=== PATIENT | male | born 1940 | race Caucasian/White ===

== ENCOUNTER 2019-12-14 13:11 | Outpatient (CLI) | payer MEDICARE, OTHER ==
[2019-12-14 13:17] LABS: HGB - HEMOGLOBIN 15.7 g/dL (14.0-18.0); MEAN CORPUSCULAR HEMOGLOBIN 33.5 pg (27.0-31.0); MEAN CORPUSCULAR HGB CONC 35.1 g/dL (32.0-36.0); MEAN CORPUSCULAR VOLUME 95.3 fL (80.0-94.0); MEAN PLATELET VOLUME 9.8 fL (7.4-11.4); RED BLOOD COUNT 4.69 10^6/uL (4.70-6.10); RED CELL DISTRIBUTION WIDTH 12.6 % (12.0-15.0)
[2019-12-14 13:31] LABS: ALBUMIN/GLOBULIN RATIO 1.3 (1.0-2.2); ALKALINE PHOSPHATASE 71 IU/L (42-121); ALT ALANINE AMINOTRANSFERASE 25 IU/L (10-60); AST ASPARTATE AMINOTRANSFERASE 23 IU/L (10-42); BILIRUBIN,TOTAL 1.3 mg/dL (0.2-1.0); BUN - BLOOD UREA NITROGEN 27 mg/dL (6-20); CALCIUM 8.9 mg/dL (8.5-10.3); CARBON DIOXIDE - CO2 23 mmol/L (21-32); CHLORIDE 106 mmol/L (101-111); CHOL/HDL RATIO 4.8 (<5.0); CHOLESTEROL 140 mg/dL; CREATININE 0.7 mg/dL (0.6-1.2); GLUCOSE 95 mg/dL (70-100); HDL CHOLESTEROL 29 mg/dL; LDL CHOLESTEROL,CALCULATED 97 mg/dL; LDL/HDL RATIO 3.3 (<3.6); SODIUM 138 mmol/L (135-145); TOTAL PROTEIN 7.2 g/dL (6.7-8.2); VLDL CHOLESTEROL 14 mg/dL
[2019-12-14 13:35] LABS: HB2 TOTAL 16.6 g/dL; HEMOGLOBIN A1C 0.62 g/dL; HEMOGLOBIN A1C % 5.6 % (4.6-6.2)
[2019-12-14 13:43] LABS: THYROID STIMULATING HORMONE 0.99 uIU/mL (0.34-5.60)
[2019-12-14 13:45] LABS: FREE T4 (FREE THYROXINE) 0.99 ng/dL (0.58-1.64)
--- NOTE | 2019-12-14 15:13 | CT Report ---
PROCEDURE: HEAD WO INDICATIONS: ATAXIA, IMBALANCE TECHNIQUE: Noncontrast 4.5 mm thick angled axial sections acquired from the foramen magnum to the vertex. For r adiation dose reduction, the following was used: automated exposure control, adjustment of mA and/or kV according to patient size. COMPARISON: None. FINDINGS: Image quality: Excellent. CSF spaces: Basal cisterns are patent. No extra-axial fluid collections. Ventricles are normal in size and shape. Brain: No midline shift. No intracranial masses or hemorrhage. Mccormack-white matter interface is norm al. Skull and face: Calvarium and visualized facial bones are intact, without suspicious lesions. Sinuses: Visualized sinuses and mastoids are clear. IMPRESSION: No significant abnormality is seen on this noncontrast head CT's explain the patient's s ymptoms. If it would be helpful for clinical management decision making, please consider a dedicated brain MRI (without and with contrast) for further evaluation (assuming that there is no contraindication). Reviewed by: Eliezer Reyna MD on 12/14/2019 2:12 PM [facility] Approved by: Eliezer Reyna MD on 12/14/2019 2:12 PM [facility] Station ID: [id number]
== END 2019-12-14 13:12 | disposition home or self-care (01) ==
LOC: DI 13:11
PROVIDERS: ATTEND Student in an Organized Health Care Education/Training Program
DX: R26.89 Other abnormalities of gait and mobility (principal); I48.91 Unspecified atrial fibrillation; I25.2 Old myocardial infarction; R73.03 Prediabetes; N40.1 Benign prostatic hyperplasia with lower urinary tract symptoms; R35.1 Nocturia; D69.6 Thrombocytopenia, unspecified
CPT/HCPCS: 36415; 70450; 80053; 80061; 82306; 82607; 83036; 83721; 84153; 84439; 84443; 85027; 93005

== ENCOUNTER 2021-01-11 16:35 | Outpatient (CLI) | payer MEDICARE, OTHER | END 2021-01-11 16:36 | disposition home or self-care (01) | LOC: COV 16:35 | PROVIDERS: ATTEND Family Medicine | DX: Z20.822 Contact with and (suspected) exposure to COVID-19 (principal) ==

== ENCOUNTER 2021-01-12 09:05 | Outpatient (CLI) | payer MEDICARE, OTHER | END 2021-01-12 09:06 | disposition home or self-care (01) | LOC: DI 09:05 | PROVIDERS: ATTEND Internal Medicine Cardiovascular Disease | DX: I48.91 Unspecified atrial fibrillation (principal); I51.7 Cardiomegaly; I87.8 Other specified disorders of veins | CPT/HCPCS: 93306 ==

== ENCOUNTER 2021-02-19 15:27 | Emergency (ER) | payer MEDICARE, OTHER ==
[2021-02-19 15:36] VITALS: BP 147/66
--- NOTE | 2021-02-19 15:59 | ED Physician Documentation ---
History of Present Illness - Stated complaint Stated Complaint: unable to urinate - Chief complaint Chief Complaint: General - History obtained from History obtained from: Patient - Additonal information Additional information: 80-year-old male with history of BPH on Flomax missed his Flomax for a few days and since last night has been unable to urinate. He has severe suprapubic pressure. Review of Systems Constitutional: reports: Reviewed and negative Eyes: reports: Reviewed and negative Ears: reports: Reviewed and negative Nose: reports: Reviewed and negative Throat: reports: Reviewed and negative PD PAST MEDICAL HISTORY - Allergies Allergies/Adverse Reactions: Allergies Allergy/AdvReac Type Severity Reaction Status Date / Time No Known Drug Allergies Allergy Verified 02/19/21 15:32 PD ED PE NORMAL - Vitals Vital signs reviewed: Yes - General General: Alert and oriented X 3, No acute distress - Abdomen Abdomen: Soft, Non tender - Back Back: No CVA TTP, No spinal TTP - Extremities Extremities: No edema, No calf tenderness / cord - Neuro Neuro: Alert and oriented X 3, Normal speech Results - Vitals Vitals: Vital Signs - 24 hr 02/19/21 15:33 Temperature 36.5 C Heart Rate 64 Respiratory 16 Rate Blood Pressure 147/66 H O2 Saturation 98 Oxygen O2 Source Room air Procedures - General procedure General procedure: I personally placed a regular 14-gauge Agarwal in standard fashion after iodine prep. There was some resistance at the prostate but not too much. Clear urine started draining and he was relieved. Departure - Departure Disposition: 01 Home, Self Care Clinical Impression: Urinary retention Condition: Good Record reviewed to determine appropriate education?: Yes Instructions: ED Catheter Care Agarwal, ED Retention Urinary Male Comments: Continue your Flomax which you have already filled at the pharmacy. Return or Friday for Agarwal removal and voiding trial.
== END 2021-02-19 16:10 | disposition home or self-care (01) ==
LOC: ED 15:27
DX: N40.1 Benign prostatic hyperplasia with lower urinary tract symptoms (principal); R33.8 Other retention of urine
CPT/HCPCS: 51702; 99281; 99284

== ENCOUNTER 2021-02-22 13:29 | Emergency (ER) | payer MEDICARE, OTHER ==
[2021-02-22 13:38] VITALS: BP 107/67
--- NOTE | 2021-02-22 15:20 | ED Physician Documentation ---
PD HPI MALE - Stated complaint Stated Complaint: CATH REMOVAL - Chief complaint Chief Complaint: General - History obtained from History obtained from: Patient - History of Present Illness Timing - onset: How many days ago (4) Timing - duration: Days (4) Timing - details: Abrupt onset, Now resolved Associated symptoms: Unable to urinate PD HPI MALE CONTRIB FACTORS: Other (BPH) Similar symptoms before: Diagnosis (urinary retention) Recently seen: Emergency Dept - Additional information Additional information: 80-year-old male seen in the emergency department 4 days ago, and a Agarwal catheter was placed for acute urinary retention, which was which was a result of the patient missing 2 to 3 days of Flomax. He has restarted on his Flomax he has had satisfactory flow through the catheter and has no discomfort he has not otherwise been ill. He would like to trial the catheter out today. Review of Systems Constitutional: denies: Fever Eyes: denies: Decreased vision Ears: denies: Ear pain Nose: denies: Congestion Throat: denies: Sore throat Respiratory: denies: Cough GI: denies: Vomiting, Diarrhea PD PAST MEDICAL HISTORY - Allergies Allergies/Adverse Reactions: Allergies Allergy/AdvReac Type Severity Reaction Status Date / Time No Known Drug Allergies Allergy Verified 02/19/21 15:32 - Social History Does the pt smoke?: No Smoking Status: Never smoker PD ED PE NORMAL - Vitals Vital signs reviewed: Yes (Normal) - General General: Alert and oriented X 3, No acute distress, Well developed/nourished - HEENT HEENT: Atraumatic, PERRL, EOMI - Respiratory Respiratory: No respiratory distress - Derm Derm: Normal color, Warm and dry, No rash - Extremities Extremities: No deformity, No edema - Neuro Neuro: carbonation tester 2-12 intact, No motor deficit, No sensory deficit, Normal speech Eye Opening: Spontaneous Motor: Obeys Commands Verbal: Oriented GCS Score: 15 - Psych Psych: Normal mood, Normal affect Results - Vitals Vitals: Vital Signs - 24 hr 02/22/21 13:35 Temperature 36.5 C Heart Rate 63 Respiratory 16 Rate Blood Pressure 107/67 O2 Saturation 97 Oxygen O2 Source Room air PD MEDICAL DECISION MAKING - ED course Complexity details: considered differential, d/w patient ED course: 80-year-old male with acute urinary retention which has been resolved with the use of a Agarwal catheter is ready to have his Agarwal catheter removed. Is been in place for about 4 days and he has restarted his Flomax. I am not able to find a documentation of how much urine was removed on the initial draining. The patient would like to try a voiding trial and we will discontinue his Agarwal catheter and have the patient return to the emergency department if he develops recurrence of retention. Departure - Departure Disposition: 01 Home, Self Care Clinical Impression: Urinary retention Condition: Stable Instructions: ED Retention Urinary Male Follow-Up: AISSATOU CASIANO MD [Primary Care Provider] - Comments: Dianne, we have removed your catheter today and we are expecting you to be able to urinate normally within a few hours. If your bladder fills and you are unable to void return to the emergency department for replacement of the catheter. Sometimes it is required to have the catheter in place for more than a week for the bladder to begin to work normally again.
== END 2021-02-22 15:36 | disposition home or self-care (01) ==
LOC: ED 13:29
DX: Z46.6 Encounter for fitting and adjustment of urinary device (principal); R33.9 Retention of urine, unspecified
CPT/HCPCS: 99282; 99283

== ENCOUNTER 2021-02-23 14:19 | Emergency (ER) | payer MEDICARE, OTHER ==
[2021-02-23 14:47] VITALS: BP 152/85
[2021-02-23] MEDS ORDERED: LIDOCAINE 2% URO-JET 5 ML SYRINGE UR STA (15:06)
[2021-02-23 15:37] LABS: BILIRUBIN,URINE NEGATIVE (NEGATIVE); GLUCOSE, URINE (UA) NEGATIVE (NEGATIVE); KETONES,URINE (UA) NEGATIVE (NEGATIVE); LEUKOCYTE ESTERASE, URINE NEGATIVE (NEGATIVE); NITRITE,URINE NEGATIVE (NEGATIVE); OCCULT BLOOD,URINE MODERATE (NEGATIVE); PROTEIN,URINE NEGATIVE (NEGATIVE); UROBILINOGEN,URINE 1 (NORMAL) E.U./dL (NORMAL)
[2021-02-23 15:38] LABS: CLARITY,URINE SL. CLOUDY (CLEAR)
--- NOTE | 2021-02-23 15:40 | ED Physician Documentation ---
PD HPI MALE - Stated complaint Stated Complaint: unable to urinate - Chief complaint Chief Complaint: Abd Pain - History obtained from History obtained from: Patient - History of Present Illness Timing - onset: Today Timing - duration: Hours Timing - details: Gradual onset, Still present Associated symptoms: Unable to urinate PD HPI MALE CONTRIB FACTORS: Other (recent urinary retention) Similar symptoms before: Diagnosis (urinary retension) Recently seen: Emergency Dept - Additional information Additional information: Previously well 80-year-old male presenting to the emergency department 4 days ago with acute urinary retention and had a catheter placed at that time. He had no problems with the catheter and he came back yesterday for removal of the catheter after 3 days. We were able to remove the catheter and he was able to successfully void several times before he went to bed and then he noticed overnight that he was having smaller amounts out and then this morning he was unable to urinate again. He is not otherwise ill. Review of Systems Constitutional: denies: Fever Eyes: denies: Decreased vision Ears: denies: Ear pain Nose: denies: Congestion Throat: denies: Sore throat Respiratory: denies: Cough GI: denies: Vomiting : reports: Unable to Void Skin: denies: Rash Musculoskeletal: denies: Neck pain, Back pain, Extremity pain Neurologic: denies: Generalized weakness, Focal weakness, Numbness PD PAST MEDICAL HISTORY - Present Medications Home Medications: Ambulatory Orders Medication Instructions Recorded Confirmed Aspirin EC [Ecotrin] 1 tab DAILY 02/23/21 02/23/21 Sulfamethox/Trimeth 800/160 1 tab BID 02/23/21 02/23/21 [Bactrim Ds] Tamsulosin [Flomax] 1 tab DAILY 02/23/21 02/23/21 - Allergies Allergies/Adverse Reactions: Allergies Allergy/AdvReac Type Severity Reaction Status Date / Time No Known Drug Allergies Allergy Verified 02/23/21 14:47 - Social History Does the pt smoke?: No Smoking Status: Never smoker PD ED PE NORMAL - Vitals Vital signs reviewed: Yes (hypertensive) - General General: Alert and oriented X 3, No acute distress, Well developed/nourished - HEENT HEENT: Atraumatic, PERRL, EOMI - Respiratory Respiratory: No respiratory distress - Abdomen Abdomen: Soft, Other (suprapubic tenderness/fullness) - Back Back: No CVA TTP, No spinal TTP - Derm Derm: Normal color, Warm and dry, No rash - Extremities Extremities: No deformity, No edema - Neuro Neuro: Alert and oriented X 3, postal delivery officer 2-12 intact, No motor deficit, No sensory deficit, Normal speech Eye Opening: Spontaneous Motor: Obeys Commands Verbal: Oriented GCS Score: 15 - Psych Psych: Normal mood, Normal affect Results - Vitals Vitals: Vital Signs - 24 hr 02/23/21 14:44 Temperature 36.6 C Heart Rate 88 Respiratory 20 Rate Blood Pressure 152/85 H O2 Saturation 100 Oxygen O2 Source Room air - Labs Labs: Laboratory Tests 02/23/21 15:22 Urine Color DARK YELLOW Urine Clarity SL. CLOUDY Urine pH 6.0 Ur Specific [place] 1.025 Urine Protein NEGATIVE Urine Glucose (UA) NEGATIVE Urine Ketones NEGATIVE Urine Occult Blood MODERATE H Urine Nitrite NEGATIVE Urine Bilirubin NEGATIVE Urine Urobilinogen 1 (NORMAL) Ur Leukocyte Esterase NEGATIVE Urine RBC 6-10 H Urine WBC 0-3 Ur Squamous Epith Cells FEW Squamous Amorphous Sediment Not Reportable Urine Bacteria Few Urine Mucus Moderate Strands Ur Microscopic Review INDICATED Urine Culture Comments NOT INDICATED PD MEDICAL DECISION MAKING - ED course Complexity details: reviewed old records, reviewed results, re-evaluated patient, considered differential, d/w patient ED course: 80 y/o male with acute urinary retention has failed outpatient voiding trial and will now need the catheter in place for up to 2 weeks. Departure - Departure Disposition: 01 Home, Self Care Clinical Impression: Urinary retention Condition: Stable Instructions: ED Catheter Care Any, SADE Retention Urinary Male Follow-Up: AISSATOU CASIANO MD [Primary Care Provider] - Abbey Tinajero MD [Physician No Access] - Comments: Dianne, today you have failed your voiding trial and you will need to keep this catheter in place for 10 to 14 days. My recommendation is to call your primary care doctor and get an appointment to see a urologist for the follow-up visit to have the catheter removed.
[2021-02-23 15:49] LABS: BACTERIA,URINE Few /HPF (None Seen); MUCUS,URINE Moderate Strands; SQUAMOUS EPITHELIAL CELL,UR FEW Squamous (<= Few); WBC,URINE 0-3 /HPF (0-3)
== END 2021-02-23 16:40 | disposition home or self-care (01) ==
LOC: ED 14:19
DX: R33.9 Retention of urine, unspecified (principal)
CPT/HCPCS: 81001; 81003; 87086; 99283

== ENCOUNTER 2021-02-24 12:36 | Emergency (ER) | payer MEDICARE, OTHER ==
[2021-02-24 12:44] VITALS: BP 145/77
--- NOTE | 2021-02-24 12:53 | ED Physician Documentation ---
History of Present Illness - Stated complaint Stated Complaint: CATH IN WRONG - Chief complaint Chief Complaint: General - History obtained from History obtained from: Patient - Additonal information Additional information: He has an indwelling catheter placed recently because of acute urinary retention. He has skin irritation at the distal end of the leg bag where the valve is contacting the skin and he requests this be addressed. Review of Systems Constitutional: reports: Reviewed and negative Eyes: reports: Reviewed and negative Ears: reports: Reviewed and negative Nose: reports: Reviewed and negative Throat: reports: Reviewed and negative Cardiac: reports: Reviewed and negative PD PAST MEDICAL HISTORY - Past Medical History Respiratory: Sleep apnea - Past Surgical History Past Surgical History: Yes - Present Medications Home Medications: Ambulatory Orders Medication Instructions Recorded Confirmed Aspirin EC [Ecotrin] 1 tab DAILY 02/23/21 02/23/21 Sulfamethox/Trimeth 800/160 1 tab BID 02/23/21 02/23/21 [Bactrim Ds] Tamsulosin [Flomax] 1 tab DAILY 02/23/21 02/23/21 - Allergies Allergies/Adverse Reactions: Allergies Allergy/AdvReac Type Severity Reaction Status Date / Time No Known Drug Allergies Allergy Verified 02/24/21 12:44 - Social History Does the pt smoke?: No Smoking Status: Never smoker Does the pt have substance abuse?: No PD ED PE NORMAL - Vitals Vital signs reviewed: Yes - General General: Alert and oriented X 3, No acute distress - Derm Derm: Other (Agarwal catheter with leg bag in place, urine in the bag, the valve is tight against the skin near the medial right knee with mild redness there.) - Neuro Neuro: Alert and oriented X 3, Normal speech Results - Vitals Vitals: Vital Signs - 24 hr 02/24/21 12:40 Temperature 36.6 C Heart Rate 110 H Respiratory 18 Rate Blood Pressure 145/77 H O2 Saturation 98 Oxygen O2 Source Room air PD MEDICAL DECISION MAKING - ED course ED course: The leg bag was removed, replaced more loosely and he was advised to wear loose pants because he had when wearing tight jeans. Departure - Departure Disposition: 01 Home, Self Care Clinical Impression: Indwelling Agarwal catheter present Agarwal catheter problem Qualifiers: Encounter type: initial encounter Qualified Code(s): T83.9XXA - Unspecified complication of genitourinary prosthetic device, implant and graft, initial encounter Condition: Good Record reviewed to determine appropriate education?: Yes Instructions: ED Catheter Care Agarwal Comments: Wear looser pants and drink more fluids as the urine in the bag was getting a little dark. You can use the leg bag during the day and the overnight bag at night. Follow-up with urology in a week and a half or so for reevaluation. Return if worse.
== END 2021-02-24 13:10 | disposition home or self-care (01) ==
LOC: ED 12:36
DX: T83.098A Other mechanical complication of other urinary catheter, initial encounter (principal); Y84.6 Urinary catheterization as the cause of abnormal reaction of the patient, or of later complication, without mention of misadventure at the time of the procedure; Y73.8 Miscellaneous gastroenterology and urology devices associated with adverse incidents, not elsewhere classified; Z79.82 Long term (current) use of aspirin
CPT/HCPCS: 99281

== ENCOUNTER 2021-03-11 12:37 | Emergency (ER) | payer MEDICARE, OTHER ==
--- NOTE | 2021-03-11 13:20 | ED Physician Documentation ---
History of Present Illness - Stated complaint Stated Complaint: NEEDS CATH REMOVED - Chief complaint Chief Complaint: General - History obtained from History obtained from: Patient - History of Present Illness Timing: Today Pain level max: 0 Pain level now: 0 - Additonal information Additional information: states here for thompson catheter removal. unable to see urology until 05/01/21. no complaints. Review of Systems Constitutional: denies: Fever Respiratory: denies: Cough GI: denies: Abdominal Pain, Vomiting PD PAST MEDICAL HISTORY - Past Medical History Past Medical History: Yes Respiratory: Sleep apnea - Past Surgical History Past Surgical History: Yes - Present Medications Home Medications: Ambulatory Orders Medication Instructions Recorded Confirmed Aspirin EC [Ecotrin] 1 tab DAILY 02/23/21 03/11/21 Tamsulosin [Flomax] 1 tab DAILY 02/23/21 03/11/21 - Allergies Allergies/Adverse Reactions: Allergies Allergy/AdvReac Type Severity Reaction Status Date / Time No Known Drug Allergies Allergy Verified 03/11/21 12:53 - Social History Does the pt smoke?: No Smoking Status: Never smoker Does the pt have substance abuse?: No PD ED PE NORMAL - Vitals Vital signs reviewed: Yes - General General: Alert and oriented X 3, No acute distress - HEENT HEENT: Moist mucous membranes - Neck Neck: Supple, no meningeal sign - Cardiac Cardiac: RRR - Respiratory Respiratory: No respiratory distress, Clear bilaterally - Abdomen Abdomen: Soft, Non tender, Non distended - Derm Derm: Warm and dry - Extremities Extremities: No edema - Neuro Neuro: Alert and oriented X 3 Results - Vitals Vitals: Vital Signs - 24 hr 03/11/21 03/11/21 12:48 14:17 Temperature 36.5 C 36.4 C L Heart Rate 95 67 Respiratory 17 16 Rate Blood Pressure 146/83 H 148/59 H O2 Saturation 98 100 Oxygen O2 Source Room air PD MEDICAL DECISION MAKING - ED course Complexity details: reviewed old records, considered differential, d/w patient, d/w family ED course: Thompson catheter removed. No complications. Patient and family do not want to stay for a voiding trial. They will return tonight if he is unable to void. This document was made in part using voice recognition software. While efforts are made to proofread this document, sound alike and grammatical errors may occur. Patient and family did decide to stay for a voiding trial and he did void in the emergency department. Departure - Departure Disposition: 01 Home, Self Care Clinical Impression: Encounter for Thompson catheter removal Condition: Good Instructions: Thompson Catheter Remove Follow-Up: your,doctor as needed [Other] Comments: Please follow up with your doctor as needed for further care. If he is unable to urinate by tonight, he should return for catheter reinsertion Discharge Date/Time: 03/11/21 14:18
[2021-03-11 14:18] VITALS: BP 148/59
== END 2021-03-11 14:18 | disposition home or self-care (01) ==
LOC: ED 12:37
DX: Z46.6 Encounter for fitting and adjustment of urinary device (principal)
CPT/HCPCS: 99281

== ENCOUNTER 2021-03-13 10:51 | Emergency (ER) | payer MEDICARE, OTHER ==
--- NOTE | 2021-03-13 11:41 | ED Physician Documentation ---
PD HPI ABD PAIN - Stated complaint Stated Complaint: MALE - Chief complaint Chief Complaint: Abd Pain - History obtained from History obtained from: Patient, Family - Additional information Additional information: 80-year-old gentleman has had recent troubles with urinary retention. Had 2 catheters in the last month, the second was 2 weeks and its been out for about 8 days and again developed urinary retention since yesterday. Has an appointment with urology but not until May 01. Review of Systems Constitutional: denies: Fever, Chills GI: denies: Abdominal Pain, Nausea, Vomiting, Diarrhea : denies: Dysuria PD PAST MEDICAL HISTORY - Past Medical History Past Medical History: Yes Cardiovascular: Congestive heart failure Respiratory: Sleep apnea Neuro: None Endocrine/Autoimmune: None GI: None : Benign prostate hypertrophy HEENT: None Psych: None Musculoskeletal: None Derm: None - Past Surgical History Past Surgical History: Yes - Present Medications Home Medications: Ambulatory Orders Medication Instructions Recorded Confirmed Aspirin EC [Ecotrin] 1 tab DAILY 02/23/21 03/11/21 Tamsulosin [Flomax] 1 tab DAILY 02/23/21 03/11/21 - Allergies Allergies/Adverse Reactions: Allergies Allergy/AdvReac Type Severity Reaction Status Date / Time No Known Drug Allergies Allergy Verified 03/13/21 11:06 - Social History Does the pt smoke?: No Smoking Status: Never smoker Does the pt have substance abuse?: No - POLST Patient has POLST: Yes PD ED PE NORMAL - Vitals Vital signs reviewed: Yes - General General: Alert and oriented X 3, No acute distress - Abdomen Abdomen: Non tender, Non distended - Neuro Neuro: Alert and oriented X 3, Normal speech Results - Vitals Vitals: Vital Signs - 24 hr 03/13/21 11:01 Temperature 36.3 C L Heart Rate 72 Respiratory 18 Rate Blood Pressure 154/79 H O2 Saturation 98 Oxygen O2 Source Room air Departure - Departure Disposition: Home, Self Care Clinical Impression: Urinary retention Condition: Good Record reviewed to determine appropriate education?: Yes Instructions: ED Catheter Care Agarwal Comments: At this point would leave the catheter in until you follow-up with urology. Call them and let them know that you now have an indwelling Agarwal catheter. Return if worsening.
[2021-03-13 12:37] VITALS: BP 132/60
== END 2021-03-13 12:45 | disposition home or self-care (01) ==
LOC: ED 10:51
DX: R33.9 Retention of urine, unspecified (principal)
CPT/HCPCS: 51702; 99282; 99283

== ENCOUNTER 2021-03-16 08:59 | Emergency (ER) | payer MEDICARE, OTHER ==
[2021-03-16 09:05] VITALS: BP 141/59
--- NOTE | 2021-03-16 09:29 | ED Physician Documentation ---
History of Present Illness - Stated complaint Stated Complaint: CATH LEAKING - Chief complaint Chief Complaint: General - History obtained from History obtained from: Patient - History of Present Illness Timing: How many days ago (3) Pain level max: 0 Pain level now: 0 - Additonal information Additional information: Patient is a 80-year-old male who had a catheter replaced about 3 days ago. He states that intermittently he gets leaking from around the catheter at the tip of his penis. Otherwise no complaints. Nothing makes it better or worse. No pain. Review of Systems Constitutional: denies: Fever, Chills Respiratory: denies: Cough GI: denies: Vomiting, Diarrhea Skin: denies: Rash PD PAST MEDICAL HISTORY - Past Medical History Cardiovascular: Congestive heart failure Respiratory: Sleep apnea Neuro: None Endocrine/Autoimmune: None GI: None : Benign prostate hypertrophy, Retention HEENT: None Psych: None Musculoskeletal: None Derm: None - Past Surgical History Past Surgical History: Yes - Present Medications Home Medications: Ambulatory Orders Medication Instructions Recorded Confirmed Aspirin EC [Ecotrin] 1 tab DAILY 02/23/21 03/11/21 Tamsulosin [Flomax] 1 tab DAILY 02/23/21 03/11/21 - Allergies Allergies/Adverse Reactions: Allergies Allergy/AdvReac Type Severity Reaction Status Date / Time No Known Drug Allergies Allergy Verified 03/16/21 09:05 - Social History Does the pt smoke?: No Smoking Status: Never smoker Does the pt have substance abuse?: No - POLST Patient has POLST: Yes PD ED PE NORMAL - Vitals Vital signs reviewed: Yes - General General: Alert and oriented X 3, No acute distress - HEENT HEENT: Moist mucous membranes - Cardiac Cardiac: RRR - Respiratory Respiratory: No respiratory distress, Clear bilaterally - Abdomen Abdomen: Soft, Non tender, Non distended - Male Male : Other (normal external exam) - Derm Derm: Warm and dry - Neuro Neuro: Alert and oriented X 3 - Psych Psych: Normal mood, Normal affect Results - Vitals Vitals: Vital Signs - 24 hr 03/16/21 09:03 Temperature 36.1 C L Heart Rate 60 Respiratory 16 Rate Blood Pressure 141/59 H O2 Saturation 99 Oxygen O2 Source Room air PD MEDICAL DECISION MAKING - ED course Complexity details: considered differential, d/w patient ED course: Catheter replaced. Tolerated well. Increased the size of the catheter. We will have him follow-up with urology as scheduled. Patient counseled regarding signs and symptoms for which I believe and urgent re-evaluation would be necessary. Patient with good understanding of and agreement to plan and is comfortable going home at this time This document was made in part using voice recognition software. While efforts are made to proofread this document, sound alike and grammatical errors may occur. Departure - Departure Disposition: 01 Home, Self Care Clinical Impression: Indwelling Agarwal catheter present Condition: Good Instructions: ED Catheter Care Agarwal Follow-Up: your,doctor in 1 week [Other] Comments: Please make sure to follow-up with your doctor and urology for further care. Return if you worsen.
[2021-03-16 10:50] LABS: BILIRUBIN,URINE NEGATIVE (NEGATIVE); GLUCOSE, URINE (UA) NEGATIVE (NEGATIVE); KETONES,URINE (UA) 15 mg/dL (NEGATIVE); LEUKOCYTE ESTERASE, URINE SMALL (NEGATIVE); NITRITE,URINE NEGATIVE (NEGATIVE); OCCULT BLOOD,URINE LARGE (NEGATIVE); PH,URINE 6.5 PH (5.0-7.5); PROTEIN,URINE TRACE mg/dL (NEGATIVE); UROBILINOGEN,URINE 1 (NORMAL) E.U./dL (NORMAL)
[2021-03-16 10:53] LABS: CLARITY,URINE HAZY (CLEAR)
[2021-03-16 11:00] LABS: BACTERIA,URINE Few /HPF (None Seen); MUCUS,URINE Moderate Strands; SQUAMOUS EPITHELIAL CELL,UR NONE SEEN (<= Few)
== END 2021-03-16 11:10 | disposition home or self-care (01) ==
LOC: ED 08:59
DX: T83.031A Leakage of indwelling urethral catheter, initial encounter (principal); Y84.6 Urinary catheterization as the cause of abnormal reaction of the patient, or of later complication, without mention of misadventure at the time of the procedure
CPT/HCPCS: 51702; 81001; 81003; 87077; 87086; 87181; 99282; 99283

== ENCOUNTER 2021-05-18 18:54 | Emergency (ER) | payer MEDICARE, OTHER ==
[2021-05-18] MEDS ORDERED: LIDOCAINE 2% URO-JET 5 ML SYRINGE UR STA (19:22)
--- NOTE | 2021-05-18 19:25 | ED Physician Documentation ---
History of Present Illness - Stated complaint Stated Complaint: MALE - Chief complaint Chief Complaint: Abd Pain - Additonal information Additional information: 80-year-old male who has a chronic indwelling Agarwal [facility] abdominal distention and failure of the catheter to drain adequately over the last 12 to 24 hours. He is being followed by urologist and has a biopsy scheduled May 31 for further evaluation of his prostate. He does take Flomax daily. He last saw urology and had his Agarwal changed about 2 weeks ago at [facility]. Review of Systems Constitutional: denies: Fever, Chills Nose: reports: Reviewed and negative Throat: reports: Reviewed and negative Cardiac: reports: Reviewed and negative Respiratory: reports: Reviewed and negative GI: reports: Abdominal Pain. denies: Nausea, Vomiting : reports: Dysuria, Unable to Void, Other (Chronic indwelling Agarwal catheter) Skin: reports: Reviewed and negative Musculoskeletal: reports: Reviewed and negative PD PAST MEDICAL HISTORY - Past Medical History Cardiovascular: Congestive heart failure Respiratory: Sleep apnea Neuro: None Endocrine/Autoimmune: None GI: None : Benign prostate hypertrophy, Retention HEENT: None Psych: None Musculoskeletal: None Derm: None - Past Surgical History Past Surgical History: Yes - Present Medications Home Medications: Ambulatory Orders Medication Instructions Recorded Confirmed Aspirin EC [Ecotrin] 1 tab DAILY 02/23/21 03/11/21 Tamsulosin [Flomax] 1 tab DAILY 02/23/21 03/11/21 Cefpodoxime Proxetil [Vantin] 100 mg PO Q12H #14 tablet 05/18/21 - Allergies Allergies/Adverse Reactions: Allergies Allergy/AdvReac Type Severity Reaction Status Date / Time No Known Drug Allergies Allergy Verified 05/18/21 19:06 - Social History Does the pt smoke?: No Smoking Status: Never smoker Does the pt have substance abuse?: No - POLST Patient has POLST: Yes PD ED PE EXPANDED - General General: Alert, No acute distress - Cardiac Cardiac: Regular Rate, Radial strong equal, Pedal strong equal, Cap refill < 2 sec - Respiratory Respiratory: Clear to ausultation archie. No: Distress, Labored - Abdomen Abdomen: Normal Bowel sounds, Tender to palpation (Tenderness in suprapubic region with a palpable bladder) - Male Male : Other (External Agarwal catheter connected to a leg bag is no longer draining. Tubing is quite discolored and brown. Visible urine in the leg bag does appear yellow however.) - Derm Derm: Normal color, Warm and dry Results - Vitals Vitals: Vital Signs - 24 hr 05/18/21 18:58 Temperature 36.5 C Heart Rate 60 Respiratory 16 Rate Blood Pressure 163/60 H O2 Saturation 100 Oxygen O2 Source Room air - Labs Labs: Laboratory Tests 05/18/21 19:51 Urine Color DARK YELLOW Urine Clarity HAZY Urine pH 5.5 Ur Specific Cecil 1.025 Urine Protein 30 H Urine Glucose (UA) NEGATIVE Urine Ketones TRACE Urine Occult Blood LARGE H Urine Nitrite POSITIVE H Urine Bilirubin NEGATIVE Urine Urobilinogen 1 (NORMAL) Ur Leukocyte Esterase TRACE H Urine RBC TNTC H Urine WBC 6-10 H Ur Squamous Epith Cells NONE SEEN Urine Bacteria Moderate H Ur Microscopic Review INDICATED Urine Culture Comments INDICATED PD MEDICAL DECISION MAKING - ED course Complexity details: reviewed results, re-evaluated patient, considered differential, d/w patient, d/w family ED course: This is a well-appearing 80-year-old male that presents to the emergency department for evaluation of lower abdominal pain and urinary obstruction. Reports that over the last 1224 hrs. the Agarwal has stopped draining well and he has had clots in it. He is being followed by urologist through [facility] and is scheduled for a biopsy upcoming. He has not had any fevers. On initial exam the Agarwal was indeed not draining and had a very Ally urine with blood clots. The Agarwal catheter was exchanged with a 16 Turkmen catheter. He did have some bleeding noted on the newly draining urine as well as blood passing from the meatus. I spent an extensive amount of time at the bedside with the discussing that often new Agarwal catheters that are exchanged can bleed. She was quite concerned that the clots would cause obstruction tonight. We did irrigate the Agarwal at the bedside until it was pink-colored and his leg bag was adjusted to the 's preference. His urine however is consistent with acute infection. He was given a gram of ceftriaxone and will be discharged with a prescription for Cefpodoxime. He is to continue close follow-up with urology department at [facility]. Emergent return precautions were discussed for concerns of failure of the catheter to drain. Departure - Departure Disposition: 01 Home, Self Care Clinical Impression: Acute cystitis with hematuria Obstructed Agarwal catheter Qualifiers: Encounter type: initial encounter Qualified Code(s): T83.091A - Other mechanical complication of indwelling urethral catheter, initial encounter Condition: Stable Record reviewed to determine appropriate education?: Yes Prescriptions: Cefpodoxime Proxetil [Vantin] 100 mg PO Q12H #14 tablet Comments: Dianne you were seen in the emergency department today for failure of your Agarwal catheter to drain. It was changed here in the emergency department and there was blood in the urine. Urine does show infection. You were given your first dose of antibiotic in the form of an intramuscular injection here in the emergency department. Tomorrow please fill the prescription for the Cefpodoxime and begin taking twice daily for the next week. Agarwal catheters can become obstructed when there is blood in them. If there is no drainage from the catheter for 4 to 6 hours you will need to return to the ER to have it reevaluated. It is important that you continue to follow-up with urology for the biopsy that is scheduled upcoming. If you develop any fevers, have sudden severe abdominal pain or uncontrolled vomiting then please return sooner to the ER.
[2021-05-18 20:07] LABS: BILIRUBIN,URINE NEGATIVE (NEGATIVE); GLUCOSE, URINE (UA) NEGATIVE (NEGATIVE); KETONES,URINE (UA) TRACE mg/dL (NEGATIVE); LEUKOCYTE ESTERASE, URINE TRACE (NEGATIVE); NITRITE,URINE POSITIVE (NEGATIVE); OCCULT BLOOD,URINE LARGE (NEGATIVE); PH,URINE 5.5 PH (5.0-7.5); PROTEIN,URINE 30 mg/dL (NEGATIVE); UROBILINOGEN,URINE 1 (NORMAL) E.U./dL (NORMAL)
[2021-05-18 20:11] LABS: CLARITY,URINE HAZY (CLEAR)
[2021-05-18 20:27] LABS: BACTERIA,URINE Moderate /HPF (None Seen); RBC,URINE TNTC /HPF (0-5); SQUAMOUS EPITHELIAL CELL,UR NONE SEEN (<= Few)
[2021-05-18] MEDS ORDERED: LIDOCAINE 1% 2 ML VIAL MC ONE (20:34)
[2021-05-18] MEDS ORDERED: cefTRIAXone 1 GM VIAL IM STA (20:34)
[2021-05-18 21:27] VITALS: BP 124/70
== END 2021-05-18 21:51 | disposition home or self-care (01) ==
LOC: ED 18:54
DX: N30.01 Acute cystitis with hematuria (principal); T83.091A Other mechanical complication of indwelling urethral catheter, initial encounter
CPT/HCPCS: 51702; 51798; 81001; 81003; 87077; 87086; 87181; 99283

== ENCOUNTER 2021-08-07 14:33 | Outpatient (CLI) | payer MEDICARE, OTHER ==
[2021-08-07 15:01] LABS: BILIRUBIN,URINE NEGATIVE (NEGATIVE); GLUCOSE, URINE (UA) NEGATIVE (NEGATIVE); KETONES,URINE (UA) NEGATIVE (NEGATIVE); LEUKOCYTE ESTERASE, URINE SMALL (NEGATIVE); NITRITE,URINE NEGATIVE (NEGATIVE); OCCULT BLOOD,URINE SMALL (NEGATIVE); PROTEIN,URINE 30 mg/dL (NEGATIVE); UROBILINOGEN,URINE 1 (NORMAL) E.U./dL (NORMAL)
[2021-08-07 15:28] LABS: BACTERIA,URINE Few /HPF (None Seen); CLARITY,URINE CLEAR (CLEAR); RBC,URINE TNTC /HPF (0-5); SQUAMOUS EPITHELIAL CELL,UR NONE SEEN (<= Few); WBC,URINE >25 /HPF (0-3)
== END 2021-08-07 14:34 | disposition home or self-care (01) ==
LOC: LAB 14:33
PROVIDERS: ATTEND Urology
DX: R39.89 Other symptoms and signs involving the genitourinary system (principal)
CPT/HCPCS: 81001; 87077; 87086; 87181